=== PATIENT | male | born 1970 | race Caucasian/White ===

== ENCOUNTER 2018-01-06 09:47 | Day surgery (SDC) | payer BC ==
[~2018-01-06] VITALS: Ht 177.8 cm; Wt 108.9 kg
[~2018-01-06 09:47] MED LIST: LEVO750 PO
[2018-01-06] MEDS ORDERED: ALLEGRA ALLERGY60 MG PO (10:40)
== END 2018-01-06 14:05 | disposition home or self-care (01) ==
LOC: ORSCSDS 09:47
PROVIDERS: Orthopaedic Surgery
PROC: 0SBC4ZZ Excision of Right Knee Joint, Percutaneous Endoscopic Approach (ICD-10-PCS; principal; 2018-01-06 11:15)
DX: M23.261 Derangement of other lateral meniscus due to old tear or injury, right knee (principal); M23.203 Derangement of unspecified medial meniscus due to old tear or injury, right knee; M17.11 Unilateral primary osteoarthritis, right knee
CPT/HCPCS: J0171; J0690; J1100; J1885; J2250; J2405; J3010; J3301; J7120

== ENCOUNTER 2023-09-11 16:08 | Emergency (ER) | payer BC ==
[~2023-09-11] VITALS: Ht 177.8 cm; Wt 142.9 kg
[~2023-09-11 16:08] MED LIST changes: +ALLEGRA ALLERGY60 MG PO
[2023-09-11 16:37] LABS: BASOPHILS ABSOLUTE AUTO 0.08 K/mm3 (0.00-0.23); BASOPHILS PERCENT AUTO 1 % (0-2); EOSINOPHILS ABSOLUTE AUTO 0.26 K/mm3 (0.00-0.68); EOSINOPHILS PERCENT AUTO 2 % (0-6); Hematocrit 40.3 % (37.0-53.0); Hemoglobin 13.3 g/dL (13.5-17.5); IMMATURE GRAN ABSOLUTE AUTO 0.03 K/mm3 (0.00-0.10); IMMATURE GRAN PERCENT AUTO 0 % (0-1); LYMPHOCYTES ABSOLUTE AUTO 2.35 K/mm3 (0.84-5.20); LYMPHOCYTES PERCENT AUTO 20 % (21-46); MONOCYTES ABSOLUTE AUTO 1.37 K/mm3 (0.16-1.47); MONOCYTES PERCENT AUTO 12 % (4-13); Mean Corpuscular HGB 28.1 pg (26.0-34.0); Mean Corpuscular Volume 85 fL (80-100); Mean Platelet Volume 8.9 fL (9.1-12.4); NEUTROPHILS ABSOLUTE AUTO 7.65 K/mm3 (1.96-9.15); NEUTROPHILS PERCENT AUTO 65 % (41-73); Platelet Count 347 K/mm3 (150-400); RDW Coefficient Variation 13.3 % (11.7-14.2); RDW Standard Deviation 41.7 fL (35.1-46.3); Red Blood Cell Count 4.73 M/mm3 (4.30-5.90); White Blood Cell Count 11.74 K/mm3 (4.00-11.30)
[2023-09-11 17:02] LABS: Albumin, Blood 3.2 g/dL (3.4-5.0); Albumin/Globulin Ratio 0.6 (0.8-1.8); Bilirubin, Total 0.3 mg/dL (0.1-1.0); Bun/Creatinine Ratio 28.8 (12.0-20.0); Calcium, Blood 8.4 mg/dL (8.5-10.1); Creatinine, Blood 0.73 mg/dL (0.60-1.20); Potassium, Blood 3.6 mmol/L (3.5-5.5); Total Protein, Blood 8.2 g/dL (6.4-8.2)
[2023-09-11] MEDS ORDERED: CEPH500 PO (17:40)
[2023-09-11 18:00] VITALS: BP 182/91
== END 2023-09-11 18:11 | disposition home or self-care (01) ==
LOC: ER 16:08
PROVIDERS: Student in an Organized Health Care Education/Training Program
DX: L03.115 Cellulitis of right lower limb (principal); I87.2 Venous insufficiency (chronic) (peripheral)
CPT/HCPCS: 80053; 85025; 96365; 99283-25; J0690

== ENCOUNTER 2023-11-02 08:51 | Day surgery (SDC) | payer BC ==
[~2023-11-02] VITALS: Ht 176 cm; Wt 139.3 kg
--- NOTE | 2023-11-02 06:33 | NUR ---
11/02/23 [address] ANGLIN, SEE ANESTHESIA RECORDS.
[~2023-11-02 08:51] MED LIST changes: +ALBU90OI INH; +AMLO10 PO; +Aspir 8181 MG PO; +BREZTRI AEROS10.7 GM INH; +CEPH500 PO; +DUPIXENT300 MG/21 SC; +ENBREL25 MG/0.2 SC; +JARDIANCE10 MG PO; +Lactated Ringer's 1,000 ML IV SCH; +METF500 PO; +MONT10T PO; +SPIR25 PO; +TORSE20 PO
[2023-11-02 10:14] VITALS: BP 144/90
[2023-11-02] MEDS ORDERED: VERA180ERB PO (10:28)
[2023-11-02] MEDS ORDERED: SOAANZ20 M3 PO (10:28)
[2023-11-02] MEDS ORDERED: propofoL 60 ML IV ONE (10:30)
--- NOTE | 2023-11-02 10:36 | NUR ---
History, Chart, Medications and Allergies reviewed before start of procedure. Patient up to Ambulate independently. Gait steady. Pre-Op teaching done. Pt verbalizes understanding. Patient confirms NPO status and agrees with scheduled surgery. Patient states colon prep results light yellow without sediment. Patient States Post-Procedure ride home has been arranged.
[2023-11-02] MEDS ORDERED: Ipratropium/Albuterol SulF 2.5-0.5MG/3 ML Amp ONE (10:52)
[2023-11-02] MEDS ORDERED: Ondansetron HCl 2 MG / ML 2ML Vial ONE (10:54)
[2023-11-02] MEDS ORDERED: propofoL 20 ML IV ONE (11:17)
[2023-11-02 11:32] VITALS: BP 127/88
--- NOTE | 2023-11-02 11:34 | NUR ---
REPORT RECEIVED FROM GALDINO ABAD. VSS. PT ON RA. PT ABLE TO REPOSITION SELF IN BED. PT REQUESTING PO FLUIDS AND TOLERATING THEM WELL. PT DENIES PAIN, NAUSEA OR OTHER DISCOMFORTS. AT BEDSIDE.
[2023-11-02 11:40] VITALS: BP 148/77
[2023-11-02 11:47] VITALS: BP 146/89
== END 2023-11-02 12:00 | disposition home or self-care (01) ==
LOC: ORSCMMR 08:51 → ORD 10:30 → ORSCMMR 12:00
PROVIDERS: Internal Medicine Gastroenterology
PROC: 0DBN8ZX Excision of Sigmoid Colon, Via Natural or Artificial Opening Endoscopic, Diagnostic (ICD-10-PCS; principal; 2023-11-02 10:30)
DX: Z12.11 Encounter for screening for malignant neoplasm of colon (principal); K63.5 Polyp of colon; E66.01 Morbid (severe) obesity due to excess calories; Z68.42 Body mass index [BMI] 45.0-49.9, adult; I10 Essential (primary) hypertension; E11.9 Type 2 diabetes mellitus without complications; J45.909 Unspecified asthma, uncomplicated; Z79.82 Long term (current) use of aspirin; Z79.899 Other long term (current) drug therapy; Z79.84 Long term (current) use of oral hypoglycemic drugs
CPT/HCPCS: 82947; 88305; J2405; J2704; J7120